=== PATIENT | male | born 1955 | race Caucasian/White ===

== ENCOUNTER → 2017-01-14 | Outpatient (CLI) | payer OTHER | LOC: BRMIMAGING 13:59 | PROVIDERS: ATTEND Internal Medicine | DX: R07.89 Other chest pain (principal); M25.531 Pain in right wrist | CPT/HCPCS: 71020-PO; 76882-PO ==

== ENCOUNTER 2017-07-25 11:34 | Emergency (ER) | payer OTHER ==
[2017-07-25 11:45] VITALS: TEMP 98.1
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
[2017-07-25 14:06] VITALS: BP 129/68; PULSE 74; RESP 18; O2SAT 95
== END 2017-07-25 14:06 | disposition home or self-care (01) ==
DX: S80.212A Abrasion, left knee, initial encounter (principal); S20.211A Contusion of right front wall of thorax, initial encounter; V18.2XXA Unspecified pedal cyclist injured in noncollision transport accident in nontraffic accident, initial encounter